=== PATIENT | male | born 1940 | race Caucasian/White ===

== ENCOUNTER 2017-07-02 10:40 | Emergency (ER) | payer MEDICARE, OTHER ==
[~2017-07-02] VITALS: Ht 180.3 cm; Wt 73.0 kg
[~2017-07-02 10:40] MED LIST: AMLODIPINE BESY10 MG PO; CLOPIDOGREL75 MG PO; CORICIDIN HBP1 EACH PO; LORTAB ELIXIR473 ML PO; LOVASTATIN20 MG PO; LOVASTATIN40 MG PO; MELOXICAM15 MG PO; METFORMIN HCL500 M1 PO; TRIAMTERENE-HC1 EAC1 PO; VENTOLIN HFA18 GM IH; ZITHROMAX250 MG PO
[2017-07-02] MEDS ORDERED: K-TAB ER20 MEQ PO (13:06)
== END 2017-07-02 13:27 | disposition home or self-care (01) ==
LOC: ED 10:40
DX: E87.6 Hypokalemia (principal); R10.9 Unspecified abdominal pain; E11.9 Type 2 diabetes mellitus without complications; I10 Essential (primary) hypertension; Z88.8 Allergy status to other drugs, medicaments and biological substances; Z90.89 Acquired absence of other organs; Z79.899 Other long term (current) drug therapy
CPT/HCPCS: 74022; 80053; 83690; 83735; 85025; 96360; 99283; J7040

== ENCOUNTER 2017-07-12 10:25 | Emergency (ER) | payer MEDICARE, OTHER ==
[~2017-07-12] VITALS: Ht 180.3 cm; Wt 73.0 kg
[~2017-07-12 10:25] MED LIST changes: +K-TAB ER20 MEQ PO
[2017-07-12] MEDS ORDERED: NEURONTIN100 MG PO (11:58)
--- NOTE | 2017-07-13 20:50 | EKG ---
[facility] [address] [facility] [place] [address] Signed Sinus rhythm with premature atrial complexes Nonspecific ST abnormality Abnormal ECG Confirmed by EDUARDO STEPHENS MD ([id number]) on 07/13/2017 8:49:51 PM Electronically Signed By: EDUARDO STEPHENS MD 07/13/172049 PATIENT NAME: KATHRINE AYALA Electrocardiogram DATE OF : 42 PHYSICIAN: EDUARDO STEPHENS MD REPORT #: [id number] REPORT IS CONFIDENTIAL AND NOT TO BE RELEASED WITHOUT AUTHORIZATION
== END 2017-07-12 13:16 | disposition short-term general hospital (02) ==
LOC: ED 10:25
DX: R55 Syncope and collapse (principal); S22.42XA Multiple fractures of ribs, left side, initial encounter for closed fracture; R79.89 Other specified abnormal findings of blood chemistry; E11.9 Type 2 diabetes mellitus without complications; I10 Essential (primary) hypertension; F03.90 Unspecified dementia, unspecified severity, without behavioral disturbance, psychotic disturbance, mood disturbance, and anxiety; Z88.5 Allergy status to narcotic agent; Z79.84 Long term (current) use of oral hypoglycemic drugs; Z79.899 Other long term (current) drug therapy; W01.190A Fall on same level from slipping, tripping and stumbling with subsequent striking against furniture, initial encounter
CPT/HCPCS: 70450; 71101; 80053; 81001; 84484; 85025; 87077; 87088; 93005; 93010; 96374; 96375; 99285; J1170; J1885; J2405

== ENCOUNTER 2017-11-04 21:34 | Emergency (ER) | payer MEDICARE, OTHER ==
[~2017-11-04] VITALS: Ht 180.3 cm; Wt 73.0 kg
[~2017-11-04 21:34] MED LIST changes: +NEURONTIN100 MG PO
[2017-11-04] MEDS ORDERED: POLYETHYLENE GL17 GM PO (21:45)
[2017-11-04] MEDS ORDERED: XARELTO20 MG PO (21:45)
[2017-11-04] MEDS ORDERED: QUETIAPINE FUMA50 MG PO (21:45)
[2017-11-04] MEDS ORDERED: TYLENOL EXTRA500 MG PO (21:47)
[2017-11-04] MEDS ORDERED: RANITIDINE HCL150 MG PO (21:47)
--- NOTE | 2017-11-06 14:16 | NUR ---
SOUMYA and SOUMYA Anton saw patient and his daughter Yanna at home residence on 11/06/17 at 11:00. Spoke with patient daughter Yanna about options with DHS for assistance and going to the PCP for herself to be evaluated for FMLA leave so she can spend time with family trying to figure out resources for her father. Daughter stated she was upset in regards to the transition of physicians in the ED and that the ED doctor who discharged her father did not review the notations. Yanna "daughter" is planning on working on the Medicaid process for her dad with Aging and People with Disabilities today. Dr Clark is ordering a neuro psych eval for the patient and Yanna will be discussing medications for her father to the doctor in regards to his non sleeping habits, wondering off, violent tendencies. Looking into placement for her dad, all depends on how much his social security benefits will be affected by the placement if so then dad will need to stay at home with her mother and hopefully receives hours for care. CHW will be in contact with patient daughter throughout the process as a support system and follow up.
== END 2017-11-05 12:52 | disposition home or self-care (01) ==
LOC: ED 21:34
DX: F03.90 Unspecified dementia, unspecified severity, without behavioral disturbance, psychotic disturbance, mood disturbance, and anxiety (principal); R45.1 Restlessness and agitation; E11.9 Type 2 diabetes mellitus without complications; I10 Essential (primary) hypertension; Z88.8 Allergy status to other drugs, medicaments and biological substances; Z79.899 Other long term (current) drug therapy; Z79.84 Long term (current) use of oral hypoglycemic drugs
CPT/HCPCS: 80053; 81001; 84484; 85025; 96372; 99283; J1630; J2060

== ENCOUNTER 2017-12-26 21:29 | Emergency (ER) | payer MEDICARE, OTHER ==
[~2017-12-26] VITALS: Ht 180.3 cm; Wt 73.0 kg
[~2017-12-26 21:29] MED LIST changes: +POLYETHYLENE GL17 GM PO; +QUETIAPINE FUMA50 MG PO; +RANITIDINE HCL150 MG PO; +TYLENOL EXTRA500 MG PO; +XARELTO20 MG PO
== END 2017-12-26 23:14 | disposition home or self-care (01) ==
LOC: ED 21:29
DX: F03.90 Unspecified dementia, unspecified severity, without behavioral disturbance, psychotic disturbance, mood disturbance, and anxiety (principal); E11.9 Type 2 diabetes mellitus without complications; I10 Essential (primary) hypertension; Z88.8 Allergy status to other drugs, medicaments and biological substances; Z79.899 Other long term (current) drug therapy; Z79.84 Long term (current) use of oral hypoglycemic drugs
CPT/HCPCS: 99282

== ENCOUNTER 2018-01-15 17:40 | Inpatient (IN) | payer MEDICARE, OTHER ==
[~2018-01-15] VITALS: Ht 180.3 cm; Wt 66.1 kg
[2018-01-15] MEDS ORDERED: DONEPEZIL HCL5 MG PO (17:55)
[2018-01-15] MEDS ORDERED: MILK OF MA400 MG/5 M PO (18:17)
[2018-01-15] MEDS ORDERED: LORAZEPAM1 MG PO (18:17)
[2018-01-15] MEDS ORDERED: BISACODYL10 MG PR (18:17)
[2018-01-15] MEDS ORDERED: NAMENDA5 MG PO (18:19)
[2018-01-15] MEDS ORDERED: REMERON30 MG PO (18:20)
--- NOTE | 2018-01-15 21:30 | NUR ---
PT ARRIVED TO ROOM 129 ICU ADMIT FOR GI BLEED, TRANSFERRED TO BED FROM [facility] WITH THREE PEOPLE SLIDING PT. PT IS AWAKE AND VERBAL, ANSWERS SOME QUESTIONS BUT IS ORIENTED TO SELF ONLY. PT HAD SYNCOPAL EPISODE, CAME IN TO ER WHERE HE THEN HAD SOME COFFEE GROUND EMESIS. 20# IV IN PLACE, SECURED AND WRAPPED WITH GAUZE WRAP. PT HAS FREQUENT C/O BEING COLD, WARM BLANKETS GIVEN. IVF INFUSING AT 125ML/HR. PT CLEANED UP OF SOME COFFEE GROUND EMESIS AROUND MOUTH AND NECK, CURRENTLY DENIES PAIN WHEN ASKED AND JUST WANTS TO LIE BACK IN BED WITH WARM BLANKETS.
--- NOTE | 2018-01-15 22:00 | NUR ---
DR MORA IN TO SEE PT.
--- NOTE | 2018-01-15 23:50 | NUR ---
PT HAS BEEN VERY RESTLESS, CONTINUES TO PULL AT IV TUBING, PULL OFF MONITOR LEADS DESPITE CONSTANT ATTEMPTS TO ORIENT/DIRECT PT. 0.5MG IV ATIVAN GIVEN TO HELP PT SLEEP AND PROTECT IV SITE.
--- NOTE | 2018-01-16 01:45 | NUR ---
PT RESTING SOME AND FIDGETING AND PULLING AT MONITOR CORDS OFTEN. UP TO VOID IN URINAL WITH TWO PERSON STAND BY ASSIT, REQUIRES MUCH DIRECTION TO GET HIM TO USE URINAL HE IS CONFUSED. BACK TO BED WITH BED ALARM ON.
--- NOTE | 2018-01-16 04:05 | NUR ---
PT UP SETTING OFF BED ALARM, VOIDS 600ML THEN BACK TO BED. HR REMAINS 70'S WHILE UP.
--- NOTE | 2018-01-16 06:17 | NUR ---
LAB IN TO DRAW
--- NOTE | 2018-01-16 06:18 | NUR ---
PT ADMITTED FOR POSSIBLE GI BLEED, SYNCOPAL EPISODE AT HOME THEN COFFEE GROUND EMESIS X1 IN ER. NO FURTHER EMESIS UPON ADMIT. VSS. CONFUSED AT BASELINE, HAS NOT SLEPT MUCH THROUGH THE NIGHT BUT HAS BEEN RESTLESS AND PULLING AT CORDS, REQURING BED ALARM AND CLOSE MONITORING FOR SAFETY. ALSO REQUIRED O2/2L SATURATIONS ON ROOM AIR ARE 80-85%. EGD PLANNED FOR TODAY. AWAITING RESULTS OF MOST RECENT LABS.
--- NOTE | 2018-01-16 07:49 | NUR ---
REPORT RECEIVED FROM TORI HAQ. PT UP TO SIDE OF BED TO VOID BUT NEEDS 2-3 STAFF MEMBERS TO HELP WITH DIRECTION. PT VERY CONFUSED AND DOES NOT FOLLOW COMMANDS. PT VOIDS 500 TO URINAL. LR INFUSING AT 125 ML/HR INTO RIGHT IV SITE. BED ALARM ON FOR SAFETY.
--- NOTE | 2018-01-16 08:04 | NUR ---
PATIENT'S DAUGHTER AT BEDSIDE AT THIS TIME. ALL QUESTIONS ANSWERED BEST POSSIBLE.
--- NOTE | 2018-01-16 08:12 | NUR ---
PT IS RESTING IN BED SAFELY WITH CALL LIGHT IN REACH AND BED ALARM ON. NURSE MARIA DE JESUS IS IN ROOM DOING HER MORNING ASSESMENT. PT DID NOT NEED ANYTHING AT THE MOMENT
--- NOTE | 2018-01-16 08:59 | CONS ---
[facility] [address] [place], [place] [address] Signed DATE OF CONSULTATION: 01/15/2018 PROBLEM: Hematemesis, anemia, and dementia. HISTORY OF PRESENT ILLNESS: This 77-year-old white man was admitted by Dr. Gurrola to the Intensive Care Unit, having presented with what appeared to be a syncopal episode. He is known to be a Mosque, but upon further review with his sql data architect, daughter does not adhere to transfusion restriction other than not having whole blood. The patient is known to have dementia, probably Alzheimer's and is impressively poor historian overall. He resides at [facility], and at the dinner table this evening had a fainting episode where he regained consciousness after a few minutes and emergency medical services were called. He was found to be hypotensive with a systolic pressure of 70 and seen in the emergency room by Dr. Rodriguez where he was found to have a diminished hematocrit. No evidence of sepsis, particularly and admission by Dr. Gurrola to the Intensive Care Unit for further management. The patient is chronically anticoagulated with thrombin inhibitor related to prior history of deep venous thrombosis. His last episode of thrombosis was in June of 2017. He had his rivaroxaban this morning. He was witnessed to have hematemesis, which prompted his transfer to the Intensive Care Unit. He was noted to have a hematocrit of 30.2, with white count of 6.7, and platelets of 212,000. His urinalysis is reasonably normal as are his electrolytes and creatinine is noted to be 1.20. Lactic acid level is 3.7. Since his admission to the Intensive Care Unit, he remains non tachycardic and not particularly hypotensive at this time. REVIEW OF SYSTEMS: He is unable to contribute much in the way of the history at all including his review of systems. PHYSICAL EXAMINATION: GENERAL: Elderly white male with mustache and marginal cooperation with examination. He clearly does have dementia. He is not systemically toxic that I can tell his baseline mental state is not known either. HEENT: Trachea is midline. His mucous membranes are reasonably moist. CHEST: Shows no sign of tachypnea. VITAL SIGNS: Pulse is regular at 64 at this time. ABDOMEN: Soft and nondistended. There is no sign of ascites or tenderness. EXTREMITIES: Show mild clubbing. Electronically Signed By: SILVIA MORA MD 01/16/18 0859 PATIENT NAME: KATHRINE AYALA CONSULTATION DATE OF : 42 REPORT #: [id number] PHYSICIAN: SILVIA MORA MD PCP: HILARY ZAMUDIO DO REPORT IS CONFIDENTIAL AND NOT TO BE RELEASED WITHOUT AUTHORIZATION [facility] [address] [place], [place] [address] Signed ASSESSMENT: He has had a witnessed episode of hematemesis is known as a baseline to have anemia with hematocrit of 30, but normal platelets and is on anticoagulant rivaroxaban. Upper endoscopy is clearly indicated to assess for source of bleeding. This may be peptic in nature or possibly diffuse gastritis or even a Nell-Hemphill tear, it is uncertain. He has not had protracted retching so far as we can tell. He does not appear to have tenderness and does not appear at this moment to have ongoing bleeding. I have affirmed with Dr. Gurrola that reversal of his anticoagulation would be reasonable under the circumstances. It was initially thought that transfusion therapy would be prohibitive based on his orthodoxy preferences, however, we are advised that transfusion is acceptable as long as components rather than whole blood are used. We will plan for upper endoscopy tomorrow as I have discussed with Dr. Gurrola. If things worsen in the meantime, certainly the plan can be modified to more expediently to perform upper endoscopy. Silvia Mora MD /MODL /[id number] cc: Raymundo Gurrola MD Copies: RAYMUNDO RODRIGUEZ LOHITH VEERAPPA MD ~ Electronically Signed By: SILVIA MORA MD 01/16/18 0859 PATIENT NAME: KATHRINE AYALA CONSULTATION DATE OF : 42 REPORT #: [id number] PHYSICIAN: SILVIA MORA MD PCP: HILARY ZAMUDIO DO REPORT IS CONFIDENTIAL AND NOT TO BE RELEASED WITHOUT AUTHORIZATION
--- NOTE | 2018-01-16 10:29 | NUR ---
SURGERY HERE TO TAKE PATIENT TO ENDO ROOM. 2ND BAG OF IV MAGNESIUM STARTED AT THIS TIME.
--- NOTE | 2018-01-16 11:18 | NUR ---
REPORT GIVEN TO TORI HERNANDEZ ON MED/SURG. PT WILL TRANSFER TO MED/SUG AFTER UPPER SCOPE TO ROM 120. ALL BELONGINGS TAKEN TO ROOM 120.
--- NOTE | 2018-01-16 11:24 | NUR ---
01/16/18 1124 Alyson Patel 1120 PATIENT ARRIVES TO PACU SLEEPING, DOES NOT RESPOND TO VERBAL OR PAINFUL STIMULI. RESP EVEN AND UNLABORED, ORAL AIRWAY IN PLACE, MASK AT 10 LITERS.
--- NOTE | 2018-01-16 12:30 | NUR ---
PT ARRIVED FROM PACU. REPORT TAKEN FROM TORI JEREZ. PT VERY DROWSY, CANNOT KEEP EYES OPEN. MOANS WHEN SHAKEN. CBG TAKEN. DEPENDS IN PLACE. IV FLUIDS INFUSING ORDERED. ASSESSMENT DONE. CARAFATE HELD AT THIS TIME R/T PT ALTERTNESS. WILL GIVE WHEN PT AWAKENS. PT POSIITONED ON RIGHT SIDE R/T ASPIRATIONS PERCAUTIONS. CONTINIOUS PULSE OX ON. CALL LIGHT WITHIN REACH. BED ALARM ON. DOOR OPEN FOR VIEW FROM NURSES STATION.
--- NOTE | 2018-01-16 13:40 | NUR ---
THIS RN TO ROOM FOR VITALS. PT AWAKENS TO VOICE. PT REQUESTS A SIP OF WATER, TOLERATES WELL. CARAFATE GIVEN. PT REQUESTS URINAL. REPORTS SOME BURNING WITH URINATION. NOTED IN ASSESSMENTS. PT DRIFTS BACK TO SLEEP. RR - 16BPM. REMAINS ON RIGHT SIDE. CALL LIGHT WITHIN REACH. BED RAILS UP. BED ALARM ON.
[2018-01-16] MEDS ORDERED: GLUCERNA237 M1 PO (15:08)
[2018-01-16] MEDS ORDERED: ATIVAN1 MG PO (15:15)
--- NOTE | 2018-01-16 15:18 | NUR ---
MED REC COMPLETE
--- NOTE | 2018-01-16 16:19 | NUR ---
AFTERNOON ASSESSMENT DUE. THIS RN TO PT BEDSIDE. PT RESTING WITH EYES CLOSED, AWAKES TO TOUCH AND VOICE. OPENS EYES UPON COMMAND BUT CANNOT FOLLOW OTHER COMMANDS. SAYS "YES" TO WATER BUT IS UNABLE TO SUCK THROUGH STRAW. ASSESSMENT DONE. MEDICATION GIVEN (SEE MAR). BED RAILS UP. CALL LIGHT WITHIN REACH. BED ALARM ON.
--- NOTE | 2018-01-16 17:30 | NUR ---
THIS RN TO PT ROOM. PT STATES HE IS HUNGERY. CHOCHOLATE PUDDING PROVIDED. CALL LIGHT WITHIN REACH. BED ALARM ON.
--- NOTE | 2018-01-16 17:50 | NUR ---
PT IS SITTING UP IN BED SAFELY WITH CALL LIGHT IN REACH AND BED ALARM ON. PT DID NOT WANT TO ORDER DINNER BUT HE DID EAT A CHOCLATE PUDDING. PT DID NOT NEED ANYTHING ELSE AT THE MOMENT
--- NOTE | 2018-01-16 18:50 | NUR ---
PT TRANFERED FROM CCU TO MED/SURG TODAY. EDG DONE TODAY, GASTRITIS AND POSSIBLE CA. DIET ADVANCING TO ADA. STAND BY ASSIST AND FWW. PT DOES NOT USE CALL LIGHT. BED/CHAIR ALARM. PT FREQUENTLY SOMULANT, WORD SALAD. BLOOD SUGAR CHECKS. NIO FOR CONSITPATION ORDERED TODAY.
--- NOTE | 2018-01-16 19:46 | NUR ---
RECEIVED REPORT FROM DAYSAZFT NURSE. PT APPEARS TO BE CONFUSED AND RESTLESS. SITTER AT BEDSIDE AT THIS TIME. PT IS ON LR @ 75. PT IS VISIBLE FORM NURSING STATION.
--- NOTE | 2018-01-16 20:43 | NUR ---
ROUNDED CHARGE. PATIENT IS A 1 ON 1. PATIENT IS CONFUSED. NILES TOMLIN IS IN THE ROOM WITH PATIENT AT THIS TIME.
--- NOTE | 2018-01-16 20:52 | EKG ---
[facility] [address] [facility] [place] [address] Signed Normal sinus rhythm Possible Lateral infarct , age undetermined Abnormal ECG When compared with ECG of 12-JUL-2017 10:31, premature atrial complexes are no longer present Nonspecific T wave abnormality now evident in Lateral leads QT has lengthened Confirmed by EDUARDO STEPHENS MD ([id number]) on 01/16/2018 8:51:51 PM Electronically Signed By: EDUARDO STEPHENS MD 01/16/182051 PATIENT NAME: KATHRINE AYALA MARENGORacquel Electrocardiogram DATE OF : 42 PHYSICIAN: EDUARDO STEPHENS MD REPORT #: [id number] REPORT IS CONFIDENTIAL AND NOT TO BE RELEASED WITHOUT AUTHORIZATION
--- NOTE | 2018-01-16 22:17 | NUR ---
ASSESSSMENT COMPLETED. LUNGS SOUND CLEAR. HEART TONES NORMAL. PT IS CONFUSED AND IS ABLE TO FOLLOW SMALL COMANDS LIKE, "TAKE A DEEP BREATH". NIGHT TIME MEDS GIVEN. LOWER LEGS HAVE DISCOLORATION, AND SOME SCATTERED SCABS. ON BLISTER NOTED ON THE RIGHT LOWER SANDOVAL. THE PT ATTEMPTED TO PULL OUT HIS IV, BLEEDING ON HIS ARM AND BEDDING. PT CLEANED UP AND BEDDING CHANGED. SITTER IS AT BEDSIDE AT THIS TIME. CALL LIGHT WITHIN REACH.
--- NOTE | 2018-01-16 23:30 | NUR ---
PT APPEARS TO BE SLEEPING IN SUPINE POSITION. RESPIRATORY RATE WNL. SITTER AT BEDSIDE. SPOT CHECKING PULSE OX BECAUSE PT KEEPS REMOVING PROB. PT VISIBLE FROM NURSING STATION. LR INFUSING @ 75ML/HR.
--- NOTE | 2018-01-17 02:09 | NUR ---
PT IS AWAKE IN BED, PUSHING AND GRABBING THINGS ON SIDE OF BED. PT IS PLEASENT AND IS NOT TRYIG TO GET OUT OF BED AT THIS TIME. SITTER AT BED SIDE. CALL LIGHT WITHIN REACH. BED ALARM IN PLACE. FLUIDS INFUSING. RESPIRATIONS EQUAL AND UNLABORED. NO OTHER NEEDS AT THIS TIME.
--- NOTE | 2018-01-17 04:38 | NUR ---
PT APPEARS TO BE SLEEPING. FLUIDS INFUSING. BED ALARM IN PLACE. SITTER AT BED SIDE. RESPIRATIONS WNL.
--- NOTE | 2018-01-17 04:49 | NUR ---
PT HAD A GOOD NIGHT. SITTER ALL NIGHT. PT IS CONFUSED AND HAD WORD SALAD. PT HAS HAD NO N/V THIS SHIFT. SLEPT MOST OF THE NIGHT. BOWEL TONES ARE ACTIVE. PT IS SUPPOSED TO BE4 ON CONT POX BUT PT KEEPS REMOVING PROB SO SPOT CHECKS IN PLACE. PT IS SATTING WELL AND HR WNL. LR @ 75. SBA, SUGAR CHECKS, ADA DIET. ATIVAN GIVEN LAST NIGHT BEFORE BEDTIME. PT WAS BECOMING ANXIOUS TRYING TO EXIT THE BED.
--- NOTE | 2018-01-17 05:44 | NUR ---
VITALS AND I&OS DONE AND CHARTED. FRESH WATER GIVEN. BEDSIDE TABLE AND CALL LIGHT WITHIN REACH. PT SLEPT ON AND OFF ALL NIGHT. HE WAS PRESSING THE BED BUTTONS ON AND OFF ALL NIGHT LONG.
--- NOTE | 2018-01-17 08:14 | NUR ---
PATIENT AWAKE AND NOT ORIENTED TO PLACE TIME OR EVENT. IS ORIENTED TO PERSON. JASMEET BRANHAMA IN ROOM WITH HIM AND STATES HE IS GETTING AGITATED. PRN ATIVAN .5MG GIVEN P.O. REPORT RECEIVED FROM JACK PRIZER RN. PATIENT CURRENTLY IN BED WITH HOB UP DRINKING MILKSHAKE SUPPLEMENT.
--- NOTE | 2018-01-17 08:34 | NUR ---
GOT PATIENT UP IN THE CHAIR TO EAT BREAKFAST. HE DIDN'T EAT THE FIRST BREAKFAST SO WE ORDERED HIM SOME CREAM OF WHEAT WITH BROWN SUGAR AND SOME CINNAMON.
--- NOTE | 2018-01-17 08:40 | NUR ---
THE PATIENT WAS VERY ANXIOUS AND UNCORPORATIVE. THIS THE CHARGE NURSE CAME IN A COUPLE OF TIMES ALSO THE DAUGHTER STOPPED IN TO SEE HOW HE IS DOING BEFORE SHE HAD TO GO BACK TO WORK.
--- NOTE | 2018-01-17 08:49 | NUR ---
RIGHT NOW HE IS STARTING TO SETTLE DOWN.
--- NOTE | 2018-01-17 09:42 | NUR ---
DID BLOOD SUGAR CHECK THIS MORNING.
--- NOTE | 2018-01-17 09:42 | NUR ---
NURSE GOT HIM A WARM BLANKET. CHANGED HIS FLAT SHEET AND ALSO HIS BED SPREAD. PATIENT IS NOW SLEEPING.
--- NOTE | 2018-01-17 10:30 | NUR ---
SOME LEAKING FROM IV SITE. SOME COBAN WAS WRAPPED A LITTLE TIGHTLY ON UPPER ARM, REMOVED THE COBAN AND REWRAPPED LOOSELY AROUND IV SITE AND WILL MONITOR FOR MORE LEAKING.
--- NOTE | 2018-01-17 10:51 | NUR ---
PATIENT IS STILL SLEEPING.
[2018-01-17] MEDS ORDERED: SUCRALFATE1 GM PO (11:07)
[2018-01-17] MEDS ORDERED: OMEPRAZOLE20 MG PO (11:07)
--- NOTE | 2018-01-17 11:17 | NUR ---
WHEN THE NURSE AND I TOOK HIM INTO THE BATHROOM AROUND 1100 THIS MORNING. HE WAS VERY CONFUSED ON WHERE TO VOID.
--- NOTE | 2018-01-17 11:37 | NUR ---
REFUSING TO DRINK CARAFATE. WAS FINALLY ABLE TO HAVE HIM SWALLOW IT. DR STEPHENS AWARE THAT PATIENT NOT ABLE TO SWALLOW THE MORNING DOSE OF PROTONIX AND STOOL SOFTNER.
[2018-01-17] MEDS ORDERED: CLARITHROMYCIN500 MG PO (11:45)
[2018-01-17] MEDS ORDERED: AMOXICILLIN500 M1 PO (11:47)
[2018-01-17] MEDS ORDERED: ONDANSETRON HCL4 MG PO (11:50)
--- NOTE | 2018-01-17 12:26 | NUR ---
PATIENT REFUSED TO EAT HIS LUNCH AND I HAVE OFFERED HIM THINGS TO DRINK AND HE HAS REFUSED THAT ALSO. NOW HE IS CALLING FOR HIS DAUGHTER. HE IS LAYING IN BED WITH HIS EYES CLOSED.
--- NOTE | 2018-01-17 12:57 | NUR ---
DISCUSSED DISCHARGE INFORMATION WITH PATIENT'S DAUGHTER, ANGELITA SENIOR PRODUCTION SUPERVISOR HELPING TO ARRANGE TRANSPORT.
--- NOTE | 2018-01-17 13:12 | NUR ---
TAKEN OUT BY JASMEET TOMLIN. PRESSURE DRESSING APPLIED. WILL REMOVE IN 10 MINUTES.
--- NOTE | 2018-01-17 13:18 | NUR ---
STAFF GETING PT READY TO DC BACK TO [facility], DAUGHTER CHEYENNE CAME OVER AND TOLD ME PT IS HER DAD. THAT WOULD EXPLAIN WHY SHE LOOKED TIRED AND ALITTLE RATTLED. SHE WAS JUST HERE LAST WK WITH HER . HAD A GOOD VISIT, EXTENDED A BLESSING AND WILL FOLLOW NEEDED
--- NOTE | 2018-01-17 13:29 | NUR ---
PATIENT HAS BEEN TAKEING LITTLE SIPS OF WATER AND ENSURE. ALSO LITTLE BITES OF HIS PUDDING.
--- NOTE | 2018-01-17 13:48 | NUR ---
WASHED PATIENT'S ALSO AJUSTED HIS PILLOW.
--- NOTE | 2018-01-17 14:12 | NUR ---
PATIENT ASKED FOR A WARM BLANKET.
--- NOTE | 2018-01-17 14:13 | NUR ---
PATIENT REFUSED SHOWER AND ALSO A BED BATH.
--- NOTE | 2018-01-17 14:20 | NUR ---
PATIENT IS SLEEPING.
--- NOTE | 2018-01-17 15:32 | NUR ---
PT WAS COMPLANING OF LOWER BACK PAIN AND ASKED IF HE COULD HAVE SOMETHING TO HELP IT. I ASKED HIS NURSE IF HE COULD HAVE SOMETHING AND IF I COULD ALSO GIVE HIM A HOT PACK. NURSE OKAYED IT, HOT PACK WAS GIVEN TO PT AND PLACED ON HIS LOWER BACK. PT IS NOW RESTING SAFELY WITH CALL LIGHT IN REACH, BED ALARM ON, AND NABOR ALAMO IN ROOM 1:1.
--- NOTE | 2018-01-17 16:02 | NUR ---
PATIENT SAID THE HOT PACK WAS TOO HOT SO I PUT IT IN A PILLOW CASE FOR HIM. HE IS SLEEPING.
--- NOTE | 2018-01-17 16:31 | NUR ---
discusses with DR Gurrola about some tylenol for pain and zofran PO for nausea. new orders from MD. Patient currently sleeping. Ольга TOMLIN continues to be 1:1 with patient in his room.
--- NOTE | 2018-01-17 16:52 | NUR ---
PATIENT IS STILL SLEEPING.
--- NOTE | 2018-01-17 17:38 | NUR ---
REPORT GIVEN TO TRANG FROM HOME HEALTH WHOM IS TAKING OVER CARE AT [facility]. QUESTIONS ANSWERED.
--- NOTE | 2018-01-17 19:03 | OR ---
[facility] [address] [place], [place] [address] Signed DATE OF OPERATION: 01/16/2018 SURGEON: Silvia Mora MD PREOPERATIVE DIAGNOSES: 1. Severe dementia, on chronic anticoagulation with rivaroxaban. 2. Witnessed hematemesis and severe anemia. POSTOPERATIVE DIAGNOSES: Severe hemorrhagic gastritis, two areas of active bleeding; controlled with clips. PROCEDURE: Esophagogastroduodenoscopy with biopsies and control of bleeding with hemoclip. ANESTHESIA: Intravenous sedation, propofol infusion; Silvia Garland CRNA. INDICATION: This 77-year-old white man is a patient of Dr. Stephens, who was admitted yesterday with a fainting episode and found to be hypotensive with a systolic pressure in the 70s. He is also noted to have an elevated lactate level. He is chronically anticoagulated for history of deep venous thrombosis with rivaroxaban. He is the father of Katty Brown, an ophthalmic technician. He has been fluid resuscitated and has had no further episodes of bleeding, though he did have a witnessed episode of hematemesis last night. Tranexamic acid and prothrombin complex have been administered. He is to now undergo upper endoscopy to better characterize the problem, understand the risks of bleeding, infection, and perforation. FINDINGS: There was some clot within the stomach still. There were areas of active oozing of the hemorrhagic gastritis. Hemoclips were applied to those areas. Biopsies were obtained showing probable development of H. pylori, though that is not certain at this time. CLOtest was turning positive. He had no evidence of neoplasm proper. The esophagus was normal. There were no varices. The duodenum was normal. Biopsies obtained there to assess for celiac disease. PROCEDURE IN DETAIL: The patient was brought to the endoscopy suite and placed in lateral decubitus position given intravenous sedation by the private wealth advisor with propofol infusional technique. He tolerated this medication well. A bite block was placed. An Olympus video upper Electronically Signed By: SILVIA MORA MD 01/17/18 1903 PATIENT NAME: KATHRINE AYALA HOMER OPERATIVE REPORT DATE OF : 42 REPORT #: [id number] PHYSICIAN: SILVIA MORA MD PCP: HILARY ZAMUDIO DO REPORT IS CONFIDENTIAL AND NOT TO BE RELEASED WITHOUT AUTHORIZATION [facility] [address] [place], [place] [address] Signed endoscope was passed in the hypopharynx. The vocal cords were normal, though there were secretions in the hypopharynx. The scope was advanced to the esophagus throughout its length, it was normal. The scope was advanced to the stomach where there was a bit of blood, some of a fresh, but most of it clotted and old. Irrigation was undertaken. There was severe hemorrhagic gastritis noted in the proximal and mid body of the stomach. There was a broad band like configuration. First, I was concerned there may be neoplasm, but this was ultimately proven to be simply clot. This was grasped and withdrawn and offloaded. Reinspection after reintroduction of the scope allowed for irrigation of this sheet of denuded mucosa, which was quite severely inflamed with a couple of areas of active bleeding. These areas were secured with hemoclips. Biopsies were taken additionally for MILENA testing separate from the severe hemorrhagic area. Retroflexed view was undertaken showing no sign of proximal problem. The scope was carefully withdrawn and removed. The patient was taken to recovery room in good condition. CONCLUDING DIAGNOSIS: Helicobacter pylori associated hemorrhagic gastritis exacerbated by anticoagulants and with known prior history of gastritis. PLAN: We will initiate treatment for H. pylori as well as initiate Carafate topically and PPI medication. MD JOSE Yen/DENZELL /[id number] cc: Eduardo Stephens MD Copies: EDUARDO STEPHENS MD ~ Electronically Signed By: SILVIA MORA MD 01/17/18 1903 PATIENT NAME: KATHRINE AYALA WILSON CREEKRacquel OPERATIVE REPORT DATE OF : 42 REPORT #: [id number] PHYSICIAN: SILVIA MORA MD PCP: HILARY ZAMUDIO DO REPORT IS CONFIDENTIAL AND NOT TO BE RELEASED WITHOUT AUTHORIZATION
== END 2018-01-17 17:22 | disposition home health service (06) | DRG 378 ==
LOC: ED 17:40 → CCU 20:53 → MS 20:53 → DSVR 01-16 10:35 → MS 01-16 12:44
PROVIDERS: Surgery; ADMIT Internal Medicine
PROC: 0DB68ZX Excision of Stomach, Via Natural or Artificial Opening Endoscopic, Diagnostic (ICD-10-PCS; 2018-01-15)
PROC: 0DB98ZX Excision of Duodenum, Via Natural or Artificial Opening Endoscopic, Diagnostic (ICD-10-PCS; 2018-01-16)
PROC: 0W3P8ZZ Control Bleeding in Gastrointestinal Tract, Via Natural or Artificial Opening Endoscopic (ICD-10-PCS; principal; 2018-01-16 11:00)
DX: K29.71 Gastritis, unspecified, with bleeding (principal); F13.20 Sedative, hypnotic or anxiolytic dependence, uncomplicated; D62 Acute posthemorrhagic anemia; F02.81 Dementia in other diseases classified elsewhere, unspecified severity, with behavioral disturbance; K21.9 Gastro-esophageal reflux disease without esophagitis; I12.9 Hypertensive chronic kidney disease with stage 1 through stage 4 chronic kidney disease, or unspecified chronic kidney disease; G30.9 Alzheimer's disease, unspecified; B96.81 Helicobacter pylori [H. pylori] as the cause of diseases classified elsewhere; E11.22 Type 2 diabetes mellitus with diabetic chronic kidney disease; N18.3 Chronic kidney disease, stage 3 (moderate); E78.5 Hyperlipidemia, unspecified; Z88.5 Allergy status to narcotic agent; Z79.01 Long term (current) use of anticoagulants; Z79.899 Other long term (current) drug therapy; Z86.718 Personal history of other venous thrombosis and embolism; Z79.84 Long term (current) use of oral hypoglycemic drugs
CPT/HCPCS: 36415; 70450; 71045; 80053; 81001; 83605; 83735; 85025; 86850; 86900; 86901; 86920; 88305; C9132; J2060; J2405; J2704; J3475; J7030; J7040; J7120

== ENCOUNTER 2018-01-24 12:09 | Inpatient (IN) | payer MEDICARE, OTHER ==
[~2018-01-24] VITALS: Ht 180.3 cm; Wt 68.1 kg
[~2018-01-24 12:09] MED LIST changes: +AMOXICILLIN500 M1 PO; +ATIVAN1 MG PO; +BISACODYL10 MG PR; +CLARITHROMYCIN500 MG PO; +DONEPEZIL HCL5 MG PO; +GLUCERNA237 M1 PO; +LORAZEPAM1 MG PO; +MILK OF MA400 MG/5 M PO; +NAMENDA5 MG PO; +OMEPRAZOLE20 MG PO; +ONDANSETRON HCL4 MG PO; +REMERON30 MG PO; +SUCRALFATE1 GM PO
--- NOTE | 2018-01-24 15:15 | NUR ---
PT RECEIVED FROM ED. PT ON 4L NC, O2 SATS 100%, WEANED TO 1L. PT CONFUSED, NOT FOLLOWING COMMANDS OR ANSWERING QUESTIONS APPROPRIATELY, HX OF DEMENTIA. LUNG SOUNDS CLEAR. BOWEL TONES ACTIVE. PT WITH EDEMA TO BLE 1+, MOTTLED SKIN FROM ANKLES TO KNEES, MULTIPLE SCABS TO LOWER LEGS. PT INCONTINENT OF URINE, BRIEFS IN PLACE, PT WITH SCAB TO LEFT BUTTOCK. IV PROTONIX GGT INFUSING, NS BOLUS COMPLETED. VSS. BED ALARM ON.
--- NOTE | 2018-01-24 16:30 | NUR ---
VS AND I&O'S TAKEN AND DOCUMENTED. PT STATES HE DOES NOT NEED TO USE THE BATHROOM AT THIS TIME. WILL INFORM RN. CALL LIGHT IS IN REACH.
[2018-01-24] MEDS ORDERED: XARELTO20 MG PO (17:04)
--- NOTE | 2018-01-24 17:54 | NUR ---
PT DAUGHTER ASKING ABOUT HAVING ENDOSCOPY PERFORMED, SPOKE WITH DR. STEPHENS, NO NEW ORDERS AT THIS TIME. DAUGHTER UPDATED. PT NOW RESTING QUIETLY IN BED.
--- NOTE | 2018-01-24 18:41 | NUR ---
PT RECEIVED FROM ED FOR ANEAMIA. PT ON 3L NC, LUNG SOUNDS CLEAR. PT WITH HX OF DEMENTIA, ORIENTED TO SELF ONLY, DROWSY BUT AROUSABLE TO VOICE. IV PROTONIX GGT INFUSING. Q6 BLOOD GLUCOSE AND SS NOVOLIN. NPO. PT INCONTINENT AT TIME. BED ALARM IN PLACE.
--- NOTE | 2018-01-24 20:00 | NUR ---
RECEIVED REPORT AT 1900. FOUND PT IN BED SLEEPING. PT IS NOT ABLE TO STATE ANY CONCERNS.
--- NOTE | 2018-01-24 22:00 | NUR ---
V/S ARE WDL EXCEPT HIS O2 SATS. PT KEEPS TAKING OFF HIS NC AND THEN HIS SATS REMAIN IN THE 80;S. PT REFUSES TO TAKE DEEP BREATHS WHEN AUSCULTATING LUNGS. LUNGS THEREFORE SOUND DIMINISHED. ABD SOUNDS ARE PRESENT. PT HAS SLIGHT EDEMA IN ANKLES. PT IS DISORIENTED TO ALL BUT PERSON.
--- NOTE | 2018-01-25 00:07 | NUR ---
AT 2355 PT COMPLAINED OT CHESTPAIN. HR WAS VERY IRREGULAR 50'S-150'S, SBP WAS 103. MD STEPHENS WAS CALLED AND ORDERS FOR TELE WAS GIVEN. PT IS NOW BACK IN BED.
--- NOTE | 2018-01-25 00:29 | NUR ---
PT IN BED. TOOK TO THE BR. PT STATED THAT HE HAD PAIN IN HIS CHEST. TOOK VITALS NURSE AWARE.
--- NOTE | 2018-01-25 02:00 | NUR ---
IV SITE ON RIGHT FOREARM HAS INFILTRATED. OTHER IV SITE IS USED FOR IV FLUIDS. BG WAS 165, PT RECEIVED 1 UNIT OF NOVOLIN INSULIN. PT IS NOT FOLLOWING COMMANDS WHICH MAKES A PROPER ASSESSMENT DIFFICULT. THERE IS NO CHANGE IN STATUS FOR THIS PT. PT AT THIS TIME IS KEEPING HIS O2 NC ON.
--- NOTE | 2018-01-25 02:55 | NUR ---
VITALS AND I AND O DONE
--- NOTE | 2018-01-25 04:00 | NUR ---
AT 0345 PT STARTED TO COMPLAIN ABOUT ABD PAIN. IV SITE ALSO INFILTRATED. MD STEPHENS WAS CALLED. I RECEIVED AN ORDER FOR MAALOX 30ML Q4HRS PRN. I ALSO STARTED A NEW IV ON HIS LEFT UPPER ARM.
--- NOTE | 2018-01-25 06:01 | NUR ---
PT OVERALL RESTED MOST OF THE NIGHT. PT AT ONE POINT USED THE BSC TO VOID. PT THEN STARTED TO COMPLAIN OF CHESTPAIN AND HE BECAME VERY PALE IN COLOR. HR WAS ALSO VERY IRREGULAR AT THAT TIME, 50'S -150'S. MD STEPHENS WAS CALLED AND PT WAS PUT ON TELE# 6. THIS SHIFT PT HAS LOST 2 IV SITES DUE TO INFILTARTION. MD STEPHENS WANTED A IV SITE ON HIM AND A 20G IN HIS LEFT UPPER ARM WAS PLACED. SO FAR IV HAS REMAIND PATENT. URINE OUTPUT IS NOT ADEQUATE SO FAR. PT ONLY HAD 300ML OUT SO FAR. OVERALL PT LOOKS LIKE HE HAS DECLINED SOME OVER NIGHT.
--- NOTE | 2018-01-25 07:00 | NUR ---
BEDSIDE HANDOFF REPORT RECEIVED FROM ENDOSCOPY SUPPORT SPECIALIST RN. PT RESTING IN BED. IV INFUSING D5LR AT 100 ML/HR. BED ALARM IN PLACE.
--- NOTE | 2018-01-25 07:45 | NUR ---
DOCTOR STEPHENS UPDATED ON PATIENT'S CRITICAL LOW HCT AND HBG LEVEL OF 5.4 AND 16.8
--- NOTE | 2018-01-25 07:55 | NUR ---
PATIENT IN BED, TORI ABDULLAHI GIVING MEDS. NABOR ALAMO IN TO TAKE BLOODSUGAR. GARBAGE EMPTIED.
--- NOTE | 2018-01-25 08:25 | NUR ---
PT RESTING IN BED. RESTLESS, CONFUSED, HOLDING ABD AND MOANING OUT. PT GIVEN PRN MAALOX. PT ON 2L NC, LUNG SOUNDS CLEAR. PT NPO, BOWEL TONES ACTIVE, SPIT UP SMALL AMOUNT OF BRIGHT RED THICK MUCUS. ORAL CARE PROVIDED. PT WITH IV FLUIDS D5LR AT 100 ML/HR, IV PROTONIX GIVEN. PT WITH TRACE EDEMA TO BLE, BLE WITH EDEMA FROM INFILTRATED IV. PT NOT FOLLOWING COMMANDS OR ANSWERING APPROPRIATELY, BED ALARM IN PLACE.
--- NOTE | 2018-01-25 09:18 | NUR ---
PT WITH LARGE BLOODY EMESIS. VSS. PT PLACED ON OXYMASK, 02 SATS 100%, WEANED TO ROOM AIR, SATS 98%. BEDDING CAHNGED. DAUGHTER CHEYENNE CALLED FOR INFORMED CONSENT, WITNESSED BY THIS LICENSED MARRIAGE AND FAMILY THERAPIST AND RN LUIGI. PT RESTING IN BED ON LEFT SIDE. IV INFUSING. BED ALARM ON.
--- NOTE | 2018-01-25 10:20 | NUR ---
PATIENT IN BED, EYES CLOSED. VITALS AND I/OS DONE. TORI ABDULLAHI IN FOR MANUAL B/P. CALL LIGHTI N REACH
--- NOTE | 2018-01-25 10:21 | NUR ---
PT HYPOTENSIVE, BLOOD PRESSURE 90/50, HR 89. MD NOTIFIED, TELEPHONE ORDER FOR 1L LR BOLUS NOW, RBOV.
--- NOTE | 2018-01-25 10:55 | NUR ---
PT TO ENDOSCOPY WITH DAY SURGERY RN.
--- NOTE | 2018-01-25 11:46 | NUR ---
01/25/18 Tim6 Daisy Tyson 1140 PT ARRIVED TO PACU ASLEEP, ON 6NC. SNOW PLOW OPERATOR AT BEDSIDE AND GAVE MEDICAITON FOR BP. 1145 SNOW PLOW OPERATOR CONTINUES TO MONITOR PT. PT MAINTAINING OWN AIRWAY, RESP EVEN.
--- NOTE | 2018-01-25 12:10 | NUR ---
PT ARRIVED FROM PACU VIA BED. O2 AT 6L NC. REPORT GIVEN TO CCU NURSE AT THIS TIME.
--- NOTE | 2018-01-25 12:22 | NUR ---
D5LR RUNNING AT 100 ML/HR. 6L O2 VIA NC WITH HUMDIFICATION, SPO2 95%. IV SITE PLACED AT THIS TIME. DR. STEPHENS AT BEDSIDE TO ASSESS PT.
--- NOTE | 2018-01-25 12:32 | NUR ---
LEVOPHED GTT HUNG PER ORDERS. 2MCG/MIN.
--- NOTE | 2018-01-25 13:01 | NUR ---
restless, PICKING AT GOWN. SAYING FEW WORDS. LEVPOHED AT 2MCG/MIN. INCREASED TO 5MCG/MIN BP-64/27 (33). LR BOLUS INFUSING. O2 DECREASED TO 4 L NC.
--- NOTE | 2018-01-25 13:05 | NUR ---
BOLUS LR HUNG PER DR. STEPHENS ORDERS. DR. STEPHENS TALKING WITH DAUGHTER.
--- NOTE | 2018-01-25 13:06 | NUR ---
IRON INFUSED. LR BOLUS CONT TO INFUSE.
--- NOTE | 2018-01-25 13:28 | NUR ---
LEVOPHED TURNED UP TO 8 MCG/MIN AT THIS TIME. LAST BP 68/26 (34).
--- NOTE | 2018-01-25 14:50 | NUR ---
PATIENT'S DAUGHTER CHEYENNE AND HER CARLOS LEFT AT THIS TIME. THEY ARE AWARE OF HOW CRITICAL THEIR FATHER IS, AND WOULD LIKE TO BE CALLED IF ANYTHING CHANGES. PT REMAINS NON-RESPONSIVE VERBALLY, BUT DOES MOVE ALL EXTREMITIES. RR IN THE UPPER 20 -30s. HEART RATE INT HE 90s. LEVOHPED INFUSING AT 10 MCG/MIN. LAST BP 88/49 (57). PT REMAINS ON [address] STEPHENS IN TO SEE PATIENT AT THIS TIME. PT NOTED TO HAVE SOME PRODUCTIVE SOUNDING SPUTUM, AND ABLE TO SUCITON OUT DARK BLOODY TINGED SPUTUM FROM THE BACK OF HIS THROAT.
--- NOTE | 2018-01-25 15:10 | NUR ---
ORDER REC'D TO INSERT JEAN CATHETER. BLADDER SCAN SHOWED OVER 600 ML OF URINE IN BLADDER AND PT STARTING TO BECOME RESTLESS AND PULLING AT ATTENDS. PT NOT AWAKE ENOUGH TO CONSCIOUSLY VOID INTO URINAL, NOR HAS HE BEEN INCONTINENT.
--- NOTE | 2018-01-25 15:21 | NUR ---
JEAN CATHETER INSERTED AT THIS TIME WITHOUT DIFFICUTLY. PT DRAINED GREATER THAN 350 ML OF URINE RIGHT AWAY.
--- NOTE | 2018-01-25 16:33 | CONS ---
[facility] [address], [place] [address] Signed DATE OF CONSULTATION: 01/25/2018 CHIEF COMPLAINT: Anemia. HISTORY OF PRESENT ILLNESS: Kathrine is a 77-year-old Bahai with severe dementia, who was here last week with his anemia. He underwent upper endoscopy and was found to have H. pylori related gastritis. His hemoglobin stabilized around 8 and he was discharged to home with amoxicillin, clarithromycin, and his omeprazole. However, he started to demonstrate some confusion and low blood pressures and so they brought him back from [facility] to the emergency room for evaluation. Again, his hemoglobin dropped down to 5.4 and so he has been admitted to the Internal Medicine Service. The BUN was up just a little at 28, but no witnessed hematemesis. His daughter had signed that he should not receive any blood. She said IV fluids and plasmas and erythropoietin are fine. In the meantime, I was asked to see him as a general surgeon on-call for consideration of a repeat upper endoscopy. PAST MEDICAL HISTORY: 1. Type 2 diabetes. 2. Hypertension. 3. Dementia. 4. Chronic renal failure, stage 3. 5. Gastroesophageal reflux disease. 6. Hyperlipidemia. 7. Bilateral DVT. PAST SURGICAL HISTORY: tonsils. SOCIAL HISTORY: He does not smoke or drink. He is a DNR/DNI with limited additional interventions. His daughter is Anamika Brown and also his power of energy attorney at [phone]. Dr. Spenser Zamudio is his primary care provider. Kathrine resides at [facility]. FAMILY HISTORY: Not reviewed. REVIEW OF SYSTEMS: Kathrine is severely demented, so what I found was through the chart and through his daughter. ALLERGIES: Electronically Signed By: ALIRIO CASTILLO MD 01/25/18 1633 PATIENT NAME: KATHRINE AYALA HOMER CONSULTATION DATE OF : 42 REPORT #: [id number] PHYSICIAN: ALIRIO CASTILLO MD PCP: SPENSER ZAMUDIO DO REPORT IS CONFIDENTIAL AND NOT TO BE RELEASED WITHOUT AUTHORIZATION [facility] [address], [place] [address] Signed Meperidine. MEDICATIONS: 1. Omeprazole. 2. Sucralfate. 3. Amoxicillin. 4. Clarithromycin. 5. Zofran. 6. Metformin. 7. Lovastatin. 8. Polyethylene glycol. 9. Donepezil. 10. Bisacodyl. 11. Lorazepam. 12. Milk of magnesia. 13. Namenda. 14. Remeron. 15. Glucerna. PHYSICAL EXAMINATION: VITAL SIGNS: His blood pressure is 115/70, heart rate 75, respiratory rate 17, temperature is 98.0, and he is 92% on room air. He is 65 kg, 5 feet 11 inches tall. GENERAL: Kathrine is a 77-year-old gentleman, who is obviously significantly demented. He is lying semi-recumbent in his hospital bed with his leg over the side. LUNGS: Clear to auscultation. HEART: Regular rate and rhythm. ABDOMEN: Soft and flat. LABORATORY DATA: His white blood count was 10. His hemoglobin was 5.4. Neutrophils 81. His BUN 28 and creatinine 1.0. ASSESSMENT AND PLAN: Kathrine is a 77-year-old gentleman, who presents with ongoing anemia with known Helicobacter pylori-associated gastritis. There was some question whether or not he might have some hematemesis earlier today. At this point, I called his daughter, Anamika who I work with in our operating room here at [facility]. We had a long discussion regarding her dad and she would like me to repeat the upper endoscopy at least for diagnostic purposes and then we will proceed from there. She is given verbal consent over the phone. She is very aware of endoscopy. She understands its risks including, but not limited to, gas bloating, crampy abdominal pain, bleeding, perforation, requiring surgery, and missed diagnosis. She had expressed understanding and wished to proceed. Electronically Signed By: ALIRIO CASTILLO MD 01/25/18 1633 PATIENT NAME: KATHRINE AYALA HOMER CONSULTATION DATE OF : 42 REPORT #: [id number] PHYSICIAN: ALIRIO CASTILLO MD PCP: SPENSER ZAMUDIO DO REPORT IS CONFIDENTIAL AND NOT TO BE RELEASED WITHOUT AUTHORIZATION [facility] [address], [place] [address] Signed Alirio Castillo MD ALB/MODL /[id number] cc: MD Spenesr Garcia DO Copies: ALIRIO CASTILLO MD, FRANK E DO ~ Electronically Signed By: ALIRIO CASTILLO MD 01/25/18 1633 PATIENT NAME: KATHRINE AYALA CONSULTATION DATE OF : 42 REPORT #: [id number] PHYSICIAN: ALIRIO CASTILLO MD PCP: SPENSER ZAMUDIO DO REPORT IS CONFIDENTIAL AND NOT TO BE RELEASED WITHOUT AUTHORIZATION
--- NOTE | 2018-01-25 16:33 | OR ---
[facility] [address], [place] [address] Signed DATE OF OPERATION: 01/25/2018 SURGEON: Alirio Castillo MD PREOPERATIVE DIAGNOSES: 1. Hematemesis. 2. Severe anemia. 3. Congregation. POSTOPERATIVE DIAGNOSIS: Clotted blood in stomach without source of bleeding. PROCEDURE: EGD without biopsy. FINDINGS: No source of bleeding found. A 1200 mL of blood suctioned out of stomach with 2-300 mL remaining in fundus. The duodenum and pyloric channel were unremarkable. He did have some edema around the antrum, as I entered the pylorus and we looked that area very carefully for quite some time and never found an ulcer or any bleeding source. The incisura and body of the stomach were unremarkable. We never got an excellent look at the fundus because of the blood. We looked at the GE junction very carefully and he has some granulation tissue there, but no obvious bleeding. One could always have a dieulafoy lesion that is retracted in underneath the mucosa. Otherwise, no active bleeding found. 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 He was in the hospital about a week ago with a similar episode of hematemesis. At that time, he had pylori-associated gastritis. He had been doing well with a hemoglobin just over 8 and discharged to [facility]. He was on amoxicillin, clarithromycin, and his Prilosec twice a day. He seemed to be doing fine until last night when he was having low blood pressures and having confusion. He was brought to the hospital for evaluation. He was found to have anemia down to 5.4 and he was admitted to the Internal Medicine Service. BUN is up just a little at 28. He had been hydrated and I have been asked to see him as a general surgeon director of retention to consider repeat upper endoscopy. His daughter, Anamika is his power of district attorney at [phone]. Anamika happens to work in the operating room with myself and our staff. I spoke with Anamika as well as my Anesthesia provider at length. Obviously, her father is in a very difficult position. After a long discussion, she wanted us to repeat the upper Electronically Signed By: ALIRIO CASTILLO MD 01/25/18 1633 PATIENT NAME: KATHRINE AYALA HOMER OPERATIVE REPORT DATE OF : 42 REPORT #: [id number] PHYSICIAN: ALIRIO CASTILLO MD PCP: HILARY ZAMUDIO DO REPORT IS CONFIDENTIAL AND NOT TO BE RELEASED WITHOUT AUTHORIZATION [facility] [address], [place] [address] Signed endoscopy and see if we could find a source of his bleeding. She understands upper endoscopy quite well. She understands there is risk including, but not limited to, gas bloating, crampy abdominal pain, bleeding, perforation, requiring surgery and missed diagnosis, and even in his case. We did review the POLST form with Anamika. She wants her father to remain a DNR/DNI throughout the procedure. No tube feedings and no heroic measures. She had expressed understanding and wished us to proceed. PROCEDURE NOTE: Kathrine was taken into the endoscopy suite and placed in the supine semi-recumbent position. He was given small doses of Versed and propofol per the nurse computer system technician. He was given quite a bit of Meng-Synephrine to keep his blood pressures up. A bite block was utilized for the case. The adult gastroscope was introduced and advanced into the stomach without difficulty. His entire esophagus was unremarkable. We suctioned out a large amount of thin liquid, but we could not get some of the clotted blood out, so we withdrew the gastroscope and inserted an oral gastric tube and we used 120 mL of saline to help irrigate the stomach and suctioned out as much as we could. We reintroduced the gastroscope into the stomach and again, he had some clotted blood up around the fundus, over 1200 mL were evacuated in total and that helped us quite a bit. It took me a minute because of the edema around the opening to the antrum to the pylorus, but the scope finally went through and out into the third portion of the duodenum. The duodenum and pyloric channel were unremarkable. Specifically, no ulcerations or inflammatory changes. We saw a little bit of edema around the room of opening of antrum and a little bit of punctate hemorrhage there, but no obvious ulcer. We had taken quite a bit of time to irrigate and suction out the antrum and we looked very carefully around the antrum for quite some time and never found the source of bleeding. The incisura and body of the stomach were unremarkable. We never got out an excellent view of the fundus because of the clotted blood. We had withdrawn the scope up through the area of the GE junction and examined that very carefully and never could find any bleeding or evidence of any ulceration around the GE junction itself. The middle and upper esophagus were unremarkable. After this, the gas had been suctioned out and the gastroscope removed. Kathrine tolerated his procedure well. RECOMMENDATIONS: Kathrine will be returned to his room and remain a DNR/DNI. I will be talking with his daughter here shortly. Alirio Castillo MD Electronically Signed By: ALIRIO CASTILLO MD 01/25/18 2610 PATIENT NAME: KATHRINE AYALA OPERATIVE REPORT DATE OF : 42 REPORT #: [id number] PHYSICIAN: ALIRIO CASTILLO MD PCP: HILARY ZAMUDIO DO REPORT IS CONFIDENTIAL AND NOT TO BE RELEASED WITHOUT AUTHORIZATION [address] [place], [place] [address] Signed ALB/MODL /[id number] cc: DO Nina Scruggs MD Copies: HILARY ZAMUDIO CYNTHIA MD ~ Electronically Signed By: ALIRIO CASTILLO MD 01/25/18 1633 PATIENT NAME: KATHRINE AYALA OPERATIVE REPORT DATE OF : 42 REPORT #: [id number] PHYSICIAN: ALIRIO CASTILLO MD PCP: SZUMSKI,HILARY E DO REPORT IS CONFIDENTIAL AND NOT TO BE RELEASED WITHOUT AUTHORIZATION
--- NOTE | 2018-01-25 17:30 | NUR ---
DR. STEPHENS AWARE OF U/O OVER LAST 2 HRS. BOLUS ORDERED AND HUNG. PATIENT IS SOMEWHAT RESTLESS. NOT ABLE TO FOLLOW COMMANDS. OXYMASK AT 4L.
--- NOTE | 2018-01-25 20:54 | NUR ---
IN TO CHECK ON PT AT 1949, PT MOANING AND RESTLESS. DID OPEN EYES BRIEFLY AND ASKED WHO I WAS. RESP LABORED AND TACHYPNEAC, RR 30-36. FAMILY DID ARRIVE AND PT DID CALM SOME WITH WARM BLANKET. DR STEPHENS CALLED RE URINE OUTPUT AND PT BEING RESTLESS AND POSS IN DISCOMFORT. ORDER FOR ATIVAN RECEIVED. DAUGHTER STATES PT TAKES ATIVAN, UP TO 4-6MG DAILY. PT GIVEN 1MG IV AND PT DID CALM AFTERWARD. OCC TRYING TO POSS RETCH, GIVEN 4MG ZOFRAN IV. DAUGHTER ALSO STATES PT HAS ASPIRATED IN PAST, WILL HOLD CARAFATE. DISCUSSED WITH FAMILY THAT WITH PT BEING SO VERY ANEMIC THAT IS UNABLE TO FULLY OXYGENATE HIS ORGANS AND THAT THEY MAY SHOW SIGNS OF FAILURE. PT CONT TO BE ON LEVOPHED AND GTT INC TO 15MG/HR AT 2049 FOR MAP LESS THAN 60.
--- NOTE | 2018-01-26 00:15 | NUR ---
ACTING IF COLD AND RELAXED AFTER GIVEN A WARM BLANKET. OCC MOANS. CONT ON LEVOPHED AT 15MG/H. REPOSITIONED AND CATH CARE DONE.
--- NOTE | 2018-01-26 00:52 | NUR ---
SUDDENLY RESTLESS, PULLING GOWN AND 02 OFF. GIVEN 1MG ATIVAN IV.
--- NOTE | 2018-01-26 02:01 | NUR ---
LEVOPHED INC TO 17MCG/MIN AT 0150 FOR SYST IN THE 70'S. PT RESTING.
--- NOTE | 2018-01-26 02:51 | NUR ---
REPOSITIONED, HIPS FLOATED. MOANED WITH BEING TURNED.
--- NOTE | 2018-01-26 04:06 | NUR ---
PT HAS PERIODS OF BEING RESTLESS,PULLING AT CLOTHING ETC. THEN WILL QUIET. BP 19/134 LEVOPHED TURNED OFF. WILL MONITOR. PT REMAINS VERY PALE AND HAVING DIFFICULTY GETTING THE OXYMETER TO READ. CONT TO HAVE PT BE ON 02 2LNC.
--- NOTE | 2018-01-26 04:24 | NUR ---
PT CONT TO BE RESTLESS. BP UP TO 194/434 LEVOPHED STOPPED. PT CONT RESTLESS AND BP 123/101. GIVEN 1MG ATIVAN IV FOR COMFORT. WILL CONT TO MONITOR BP.
--- NOTE | 2018-01-26 05:13 | NUR ---
ADDENDUM. WHEN PT WAS AWAKE AND RESTLESS ARM MOVEMENTS WERE SYMMETRICAL.
--- NOTE | 2018-01-26 05:13 | NUR ---
BP CONT ELEVATED WITH NARROW PULSE PRESSURE. PUPILS EQUAL AND REACTIVE. CALM SINCE GIVEN ATIVAN. DR STEPHENS NOTITIFIED. WILL CONT TO MONITOR PT.
--- NOTE | 2018-01-26 05:20 | NUR ---
BP NOW 57/34. LEVOPHED RESTARTED AT 5MCG/MIN.
--- NOTE | 2018-01-26 05:45 | NUR ---
PATIENT BP 57/46 (49) - LEVOPHED DRIP TITRATED TO 10MCG/MIN
--- NOTE | 2018-01-26 07:30 | NUR ---
BESIDE REPORT RECIEVED. REMAINS ON LEVOPHED GTT.
--- NOTE | 2018-01-26 10:10 | NUR ---
ATIVAN 1 MG IV GIVEN FOR RESTLESSNESS.
--- NOTE | 2018-01-26 10:30 | NUR ---
CALM AFTER ATIVAN GIVEN.
--- NOTE | 2018-01-26 13:46 | NUR ---
BP-141/103. IS SOMEWHAT SHAKEY. WILL CONTINUE TO MONITOR.
--- NOTE | 2018-01-26 14:00 | NUR ---
BP ON NON-INVASIVE CUFF (MONITOR) 166/113. LEVOPHED TO 8MCG/MIN FRON 15 MCG/MIN. WILL CONTINUR TO MONITOR.
--- NOTE | 2018-01-26 14:15 | NUR ---
RESTLESS. MONITOR BP-154/119. LEVOPHED TO OFF.
--- NOTE | 2018-01-26 14:21 | NUR ---
MONITOR BP-171/117. MANUAL BP DONE, UNABLE TO OBTAIN. LEVOPHED RESTARTED AT 8 MCG/MIN.
--- NOTE | 2018-01-26 14:30 | NUR ---
SON IS IN ROOM.
--- NOTE | 2018-01-26 14:34 | NUR ---
1MG ATIAN GIVEN IVP AT THIS TIME DUE TO PT IS VERY TENSE AND UNABLE TO GET ACCURATE BP. PT REMAINS UNRESPOTIVE TO STAFF AND SON WHO IS HERE AT THIS TIME.
--- NOTE | 2018-01-26 14:41 | NUR ---
CALM AFTER ATIVAN. LEVOPHED GTT AT 8 MCG/MIN INCREASED TO 15 MCG/MIN BP-79/43. THIS IS MONITOR PRESSURE.
--- NOTE | 2018-01-26 15:34 | NUR ---
REMAINS CALM, BP-93/40 REMAINS ON LEVOPHED AT 15MCG/MIN.
--- NOTE | 2018-01-26 15:44 | NUR ---
SEE MONITOR PRINT OUT FOR Q 15 MIN VITAL SIGNS WHILE ON LEVOPHED GTT.
--- NOTE | 2018-01-26 17:46 | NUR ---
HAS BEEN IN SR OR AFIB TODAY. RESP RATE REMAINS >30. WORK OF BREATHING VARIES. NON-RESPONSIVE. WILL MOAN OCC WHEN TURNED. HAS NOT OPENED EYES TODAY.
--- NOTE | 2018-01-26 18:00 | NUR ---
NO CHANGES AT THIS TIME.
--- NOTE | 2018-01-26 19:11 | NUR ---
daughter here. KAT RANDALL HERE, PLAN IS TO MAKE PATIENT COMFORT CARE SOMETIME THIS EVENING.
--- NOTE | 2018-01-26 20:10 | NUR ---
FAMILY INFORMED ME THAT IT WAS TIME TO TURN OFF LEVOPHED, THAT THEY WERE READY. ALSO REUQESTING THAT PT RECIEVE MORPHINE. RR 30'S. PT GIVEN 4MG MORPHINE IV AND IVF DC'D. RR TO 26 AND SL LESS LABORED. OFFERED TO REPOSITON PT, DAUGHTER IS OK WITH HIM STAYING ON SIDE.
--- NOTE | 2018-01-26 21:15 | NUR ---
GIVEN 4MG MORPHINE IV FOR RESP COMFORT RESP WERE BECOMING SL MORE LABORED. HAD IMPROVED AFTER LAST DOSE OF MORPHINE. REPOSITIONED.
--- NOTE | 2018-01-26 22:00 | EKG ---
[facility] [address] [facility] [place] [address] Signed Atrial fibrillation with rapid ventricular response Low voltage QRS Nonspecific T wave abnormality Abnormal ECG When compared with ECG of 15-JAN-2018 18:05, Atrial fibrillation has replaced Sinus rhythm Nonspecific T wave abnormality, worse in Anterior leads QT has shortened Confirmed by EDUARDO STEPHENS MD ([id number]) on 01/26/2018 10:00:02 PM Electronically Signed By: EDUARDO STEPHENS MD 01/26/182199 PATIENT NAME: KATHRINE AYALA GLORIARacquel Electrocardiogram DATE OF : 42 PHYSICIAN: EDUARDO STEPHENS MD REPORT #: [id number] REPORT IS CONFIDENTIAL AND NOT TO BE RELEASED WITHOUT AUTHORIZATION
--- NOTE | 2018-01-26 22:35 | NUR ---
RESP BECOMING SL MORE LABORED. GIVEN 4MG MORPHINE FOR COMFORT. DAUGHTER AT BEDDSIDE.
--- NOTE | 2018-01-26 23:45 | NUR ---
REPOSITIONED. ORAL CARE DONE. GIVEN 4MG MOPHINE IV FOR COMFORT.
--- NOTE | 2018-01-27 01:41 | NUR ---
AT 0115 HR DECREASING AND RESP RATE DEC. DAUGHTER AWAKENED TO BE AT BEDSIDE. PT NONRESPONSIVE. ATT 0125 RESP STOPPED NO PULSE DETECTED. DR STEPHENS CALLED AT ABOUT 0130. IS HERE IN DEPT TO PRONOUNCE PT. DAUGHTER CHEYENNE WISHES TIME WITH PT. SHE HAS CALLED FAMILY.
--- NOTE | 2018-01-27 03:18 | NUR ---
AT ABOUT 0215 FAMILY LEFT WITH PT'S BELONGINGS. PT TO [facility] AT 0310.
== END 2018-01-27 01:40 | DRG 377 ==
LOC: ED 12:09 → MS 14:27 → CCU 01-25 12:10
PROVIDERS: Colon & Rectal Surgery; ADMIT Internal Medicine
PROC: 0DJ08ZZ Inspection of Upper Intestinal Tract, Via Natural or Artificial Opening Endoscopic (ICD-10-PCS; principal; 2018-01-25 10:24)
DX: K92.2 Gastrointestinal hemorrhage, unspecified (principal); G93.40 Encephalopathy, unspecified; D62 Acute posthemorrhagic anemia; F02.81 Dementia in other diseases classified elsewhere, unspecified severity, with behavioral disturbance; E11.22 Type 2 diabetes mellitus with diabetic chronic kidney disease; I12.9 Hypertensive chronic kidney disease with stage 1 through stage 4 chronic kidney disease, or unspecified chronic kidney disease; N18.3 Chronic kidney disease, stage 3 (moderate); E86.1 Hypovolemia; E78.5 Hyperlipidemia, unspecified; K21.9 Gastro-esophageal reflux disease without esophagitis; G30.9 Alzheimer's disease, unspecified; K29.70 Gastritis, unspecified, without bleeding; B96.81 Helicobacter pylori [H. pylori] as the cause of diseases classified elsewhere; Z88.5 Allergy status to narcotic agent; Z51.5 Encounter for palliative care; Z79.84 Long term (current) use of oral hypoglycemic drugs; Z66 Do not resuscitate; Z86.718 Personal history of other venous thrombosis and embolism; Z79.01 Long term (current) use of anticoagulants; Z79.899 Other long term (current) drug therapy
CPT/HCPCS: 36415; 71045; 74018; 80048; 80053; 81001; 82607; 82728; 82746; 83540; 83735; 84466; 85025; 85045; 85610; 85730; 86850; 86900; 86901; 87040; 87088; 93005; 93010; J0696; J0881; J1756; J2060; J2250; J2270; J2370; J2405; J2704; J7030; J7120